=== PATIENT | female | born 1990 | race American Indian/Alaskan Native ===

== ENCOUNTER 2017-08-27 14:17 | Emergency (ER) | payer MEDICAID ==
[2017-08-27 15:11] VITALS: BP 111/63
[2017-08-27 18:13] LABS: Urine Drugs of Abuse Note Disclamer
[2017-08-27 18:19] LABS: Hemoglobin 12.5 gm/dl (10.1-14.3); Mean Corpuscular HGB Conc 35 % (30-34); Mean Corpuscular Hemoglobin 32 pg (28-32); Mean Corpuscular Volume 92 fl (79-97); Platelet Count 263 K/mm3 (140-440); Red Blood Count 3.93 M/mm3 (3.65-5.03); Red Cell Distribution Width 12.8 % (13.2-15.2); White Blood Count 14.2 K/mm3 (4.5-11.0)
[2017-08-27 18:21] LABS: Bacteria,Urine 1+ /HPF (Negative); Bilirubin,Urine NEG (Negative); Blood,Urine NEG (Negative); Ketones,Urine NEG (Negative); Leukocyte Esterase,Urine MOD (Negative); Mucus,Urine FEW /HPF; Nitrite,Urine NEG (Negative); Protein,Urine <15 mg/dL mg/dL (Negative)
[2017-08-27] MEDS ORDERED: XANAX PO ONE (19:01)
--- NOTE | 2017-08-27 19:01 | Emergency Department Report ---
- General Chief complaint: Skin Rash Stated complaint: SKIN IRRITATION AND DPRESSION Time Seen by Provider: 08/27/17 16:48 Source: patient Mode of arrival: Ambulatory Limitations: No Limitations - History of Present Illness Initial comments: 27-year-old female present with a history of depression , schizophrenia, and previous CVA presents to the hospital with complaints of rash to skin. Patient presents with her children who also have a rash but different from her hers. Patient has several scattered pruritic bumps to her upper arm. No warmth or erythema. No fever reported. Patient also states that she is out of her depression medication for 6 months. Patient has moved from [place] and does not have a local primary care doctor. Patient states she was previously on Seroquel but didn't like the medication and was switched to Klonopin. Patient was initially seen and triaged to urgent care but felt to need a 1013 and therefore was transferred to the main ED. - Related Data Previous Rx's Medication Instructions Recorded Last Taken Type Cephalexin [Keflex] 500 mg PO Q12HR #20 cap 06/03/16 Unknown Rx Ibuprofen [Motrin 800 MG tab] 800 mg PO Q8HR PRN #30 tablet 06/03/16 Unknown Rx Sulfamethoxazole/Trimethoprim 1 each PO BID #20 tablet 06/03/16 Unknown Rx [Bactrim DS TAB] Allergies Allergy/AdvReac Type Severity Reaction Status Date / Time No Known Allergies Allergy Verified 06/02/16 21:26 Abscess Boil HPI - HPI Chief Complaint: Skin Rash Stated Complaint: SKIN IRRITATION AND DPRESSION Time Seen by Provider: 08/27/17 16:48 Home Medications: Previous Rx's Medication Instructions Recorded Last Taken Type Cephalexin [Keflex] 500 mg PO Q12HR #20 cap 06/03/16 Unknown Rx Ibuprofen [Motrin 800 MG tab] 800 mg PO Q8HR PRN #30 tablet 06/03/16 Unknown Rx Sulfamethoxazole/Trimethoprim 1 each PO BID #20 tablet 06/03/16 Unknown Rx [Bactrim DS TAB] Allergies/Adverse Reactions: Allergies Allergy/AdvReac Type Severity Reaction Status Date / Time No Known Allergies Allergy Verified 06/02/16 21:26 ED Review of Systems ROS: Stated complaint: SKIN IRRITATION AND DPRESSION Other details as noted in HPI Comment: All other systems reviewed and negative Other: Constitutional: No fevers chills Eyes: No eye pain visual changes ENT: No ear pain or throat pain Neck: Denies pain Respiratory: Denies cough wheezing shortness of breath Cardiovascular: Denies chest pain, palpitations, syncope GI: Denies abdominal pain, nausea, vomiting, diarrhea : Denies dysuria Musculoskeletal: Denies back pain Skin: Denies rash, lesions, erythema Neurologic: Denies headache, numbness, weakness Psychiatric: Denies suicidal ideation, homicidal ideation, hallucinations ED Past Medical Hx - Past Medical History Previous Medical History?: Yes Hx CVA: Yes Hx Psychiatric Treatment: Yes (schizophrenia, depression) - Surgical History Past Surgical History?: Yes Additional Surgical History: HYSTERECTOMY - Social History Smoking Status: Current Every Day Smoker Substance Use Type: Alcohol, Marijuana - Medications Home Medications: Home Medications Medication Instructions Recorded Confirmed Last Taken Type Cephalexin [Keflex] 500 mg PO Q12HR #20 cap 06/03/16 Unknown Rx Ibuprofen [Motrin 800 MG tab] 800 mg PO Q8HR PRN #30 tablet 06/03/16 Unknown Rx Sulfamethoxazole/Trimethoprim 1 each PO BID #20 tablet 06/03/16 Unknown Rx [Bactrim DS TAB] ED Physical Exam - General Limitations: No Limitations - Other Other exam information: General: No limitations, patient is alert in no acute distress Head exam: Atraumatic, normocephalic Eyes exam: Normal appearance ENT: Moist mucous membrane, normal oropharynx Neck exam: Normal inspection, full range of motion, no meningismus nontender Respiratory exam: Clear to auscultation bilateral, no wheezes, rales, crackles Cardiovascular: Normal rate and rhythm, normal heart sounds Abdomen: Soft, nondistended, and nontender, with normal bowel sounds, no rebound, or guarding Extremity: Full range of motion normal inspection no deformity Back: Normal Inspection, full range of motion, no tenderness Neurologic: Alert, oriented x3, cranial nerves intact, no motor or sensory deficit Psychiatric: Patient tearful Skin: Scattered bumps to left upper ED Course Vital Signs 08/27/17 15:09 Temperature 98.5 F Pulse Rate 94 H Respiratory 16 Rate Blood Pressure 111/63 O2 Sat by Pulse 98 Oximetry - Reevaluation(s) Reevaluation #1: 08/27/17 19:10 Patient requesting something to "calm her nerves". Xanax 0.5 mg by mouth ordered times 1 ED Medical Decision Making - Lab Data Result diagrams: 08/27/17 18:04 08/27/17 18:04 Lab Results 08/27/17 08/27/17 08/27/17 Range/Units 17:42 18:04 18:04 WBC (4.5-11.0) K/mm3 RBC (3.65-5.03) M/mm3 Hgb (10.1-14.3) gm/dl Hct (30.3-42.9) % MCV (79-97) fl MCH (28-32) pg MCHC (30-34) % RDW (13.2-15.2) % Plt Count (140-440) K/mm3 Lymph # Sodium 142 (137-145) mmol/L Potassium 3.1 L (3.6-5.0) mmol/L Chloride 102.9 (98-107) mmol/L Carbon Dioxide 24 (22-30) mmol/L Anion Gap 18 mmol/L BUN 12 (7-17) mg/dL Creatinine 0.6 L (0.7-1.2) mg/dL Estimated GFR > 60 ml/min BUN/Creatinine Ratio 20 % Glucose 102 H (65-100) mg/dL Calcium 8.8 (8.4-10.2) mg/dL HCG, Qual (Negative) Urine Color Yellow (Yellow) Urine Turbidity Clear (Clear) Urine pH 7.0 (5.0-7.0) Ur Specific Bath 1.019 (1.003-1.030) Urine Protein <15 mg/dl (Negative) mg/dL Urine Glucose (UA) Neg (Negative) mg/dL Urine Ketones Neg (Negative) mg/dL Urine Blood Neg (Negative) Urine Nitrite Neg (Negative) Urine Bilirubin Neg (Negative) Urine Urobilinogen 2.0 (<2.0) mg/dL Ur Leukocyte Esterase Mod (Negative) Urine WBC (Auto) 12.0 H (0.0-6.0) /HPF Urine RBC (Auto) 2.0 (0.0-6.0) /HPF U Epithel Cells (Auto) 24.0 H (0-13.0) /HPF Urine Bacteria (Auto) 1+ (Negative) /HPF Urine Mucus Few /HPF Plasma/Serum Alcohol 0.01 (0-0.07) gm% 08/27/17 08/27/17 Range/Units 18:04 18:04 WBC 14.2 H (4.5-11.0) K/mm3 RBC 3.93 (3.65-5.03) M/mm3 Hgb 12.5 (10.1-14.3) gm/dl Hct 36.0 (30.3-42.9) % MCV 92 (79-97) fl MCH 32 (28-32) pg MCHC 35 H (30-34) % RDW 12.8 L (13.2-15.2) % Plt Count 263 (140-440) K/mm3 Lymph # Dressing Machine Operator Sodium (137-145) mmol/L Potassium (3.6-5.0) mmol/L Chloride (98-107) mmol/L Carbon Dioxide (22-30) mmol/L Anion Gap mmol/L BUN (7-17) mg/dL Creatinine (0.7-1.2) mg/dL Estimated GFR ml/min BUN/Creatinine Ratio % Glucose (65-100) mg/dL Calcium (8.4-10.2) mg/dL HCG, Qual Negative (Negative) Urine Color (Yellow) Urine Turbidity (Clear) Urine pH (5.0-7.0) Ur Specific Bath (1.003-1.030) Urine Protein (Negative) mg/dL Urine Glucose (UA) (Negative) mg/dL Urine Ketones (Negative) mg/dL Urine Blood (Negative) Urine Nitrite (Negative) Urine Bilirubin (Negative) Urine Urobilinogen (<2.0) mg/dL Ur Leukocyte Esterase (Negative) Urine WBC (Auto) (0.0-6.0) /HPF Urine RBC (Auto) (0.0-6.0) /HPF U Epithel Cells (Auto) (0-13.0) /HPF Urine Bacteria (Auto) (Negative) /HPF Urine Mucus /HPF Plasma/Serum Alcohol (0-0.07) gm% - Medical Decision Making I spoke to the JESSENIA Herman he states that when he initially asked patient if she had thoughts of killing herself or anybody else and she said yes. Patient was not specific. There was no report of plan. Patient continues to denies suicidal or homicidal ideation upon further questioning. Patient presented to the ER with her children and herself to be evaluated for rash and patient expresses she just wanted something for her depression. Given the list of meds that patient stated including antipsychotics is likely patient has a history of schizophrenia as well which was reported to the mid-level by patient. This patient has been off of meds for greater than 6 months he cannot recall the appropriate medication or dosing she will receive a referral to [facility] for further evaluation. Her kids were diagnosed with tinea corpis however, patient's rash that like scattered bumps and possibly insect/mosquito bites. No specific treatment needed. Urine has elevated white cells and epithelial cells and a likely contaminated sample and not a clean catch. Patient denies urinary symptoms and therefore will not be treated. - Differential Diagnosis depression, schizophrenia, insect bites, skin infection Critical Care Time: No Critical care attestation.: If time is entered above; I have spent that time in minutes in the direct care of this critically ill patient, excluding procedure time. ED Disposition Clinical Impression: Bumps on skin, Depression, Schizophrenia, Hypokalemia Disposition: DC- TO HOME OR SELFCARE Is pt being admited?: No Does the pt Need Aspirin: No Condition: Stable Instructions: Depression (ED), Schizophrenia (ED), Acute Rash (ED), Hypokalemia (ED) Additional Instructions: Please follow up with [facility] for further evaluation and treatment of your psychiatric complaints. Continue to monitor your rash. No treatment needed at this time. Follow-up with the primary care doctor or clinic provided. Referrals: [facility] [Provider Group] - 3-[address] [facility] [Outside] - 3-5 Days ARCENIO HOLM MD [Staff Physician] - 3-5 Days (Primary care doctor ) Time of Disposition: 19:28
[2017-08-27 19:11] LABS: Sodium 142 mmol/L (137-145)
[2017-08-27 19:12] LABS: Anion Gap 18 mmol/L; BUN/Creatinine Ratio 20; Blood Urea Nitrogen 12 mg/dL (7-17); Calcium 8.8 mg/dL (8.4-10.2); Carbon Dioxide 24 mmol/L (22-30); Chloride 102.9 mmol/L (98-107); Glucose 102 mg/dL (65-100); Potassium 3.1 mmol/L (3.6-5.0)
[2017-08-27] MEDS ORDERED: K-DUR PO ONE (19:27)
[2017-08-27 20:11] LABS: Basophils % (Manual) 0 % (0.0-1.8); Blastocytes % (Manual) 0 %
[2017-08-27 20:12] LABS: Diff Status Complete; Target Cells Few
== END 2017-08-27 20:22 | disposition home or self-care (01) ==
LOC: ED 14:17
DX: R22.9 Localized swelling, mass and lump, unspecified (principal); F32.9 Major depressive disorder, single episode, unspecified; F20.9 Schizophrenia, unspecified; E87.6 Hypokalemia; F17.200 Nicotine dependence, unspecified, uncomplicated; F12.10 Cannabis abuse, uncomplicated
CPT/HCPCS: 36415; 80048; 80307; 81001; 84703; 85007; 85025; 99283; G0480; 80320